=== PATIENT | male | born 1960 | race Caucasian/White ===

== ENCOUNTER 2024-04-03 12:38 | Outpatient (AMB) | payer OTHER, SELFPAY ==
--- NOTE | 2024-04-03 12:43 | MHC.OFFVIS ---
Vital Signs 04/03/24 12:46 Height 5 ft 10 in Weight 186 lb 15.232 oz BMI 26.8 BP 122/56 L Blood Pressure Location Lt brachial Position Sitting Pulse 56 Intake Visit Reasons: JANITORIAL TECH/Dr. Jung/Fred cardiac CT Intake Note: JANITORIAL TECH visit. Pt has no concerns Graduate Assistant Required: No Accompanied by: Self / Same As Patient Allergies Penicillins Allergy (Verified 04/03/24 12:47) Hives Medication List - Last Reconciled 04/03/24 by Terrell Patrick MD aspirin (Adult Low Dose Aspirin) 81 mg PO DAILY atorvastatin 40 mg PO DAILY propranolol 40 mg PO ONCE HPI Comments Details: Thank you for referring Amandeep in cardiology consultation today for management of elevated coronary calcium score. 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 He had a coronary calcium score done about 2 years ago which showed total coronary calcium score of 212 mostly predominantly located in the LAD territory. Since then he has been on high-intensity statin therapy with atorvastatin 40 mg daily and low-dose aspirin therapy. He had a lipid panel last January which showed LDL of 71 at that point time. He said he has cut down and modified his diet significantly. He said he exercises regularly and goes for long bike rides and with Lynda rides he does get short of breath but this is not unusual. Denies any exertional chest pain. He denies any prolonged palpitation irregular heartbeat. Tolerating his medications well. Comes for management of coronary atherosclerosis. [facility], LATER [facility] Surgical History History of arthroscopy of right shoulder Status post labral repair of shoulder Family History Father HTN (hypertension) DM2 (diabetes mellitus, type 2) Colon cancer Social History Alcohol intake: current Alcohol intake frequency: holidays/special occasions only Patient Tobacco Use Status: Never used Tobacco Review of Systems Const Denies chills, Denies fatigue, Denies fever(s), Denies weight gain and Denies weight loss ENT Denies dizziness Card Denies chest pain, Denies leg edema, Denies lightheadedness, Denies palpitations, Denies dyspnea on exertion, Denies orthopnea and Denies other Resp Denies cough and Denies dyspnea on exertion GI Denies hematochezia and Denies change in stool character Musc Denies abnormal gait, Denies muscle weakness, Denies numbness, Denies radiating pain into limb and Denies tingling Neuro Denies abnormal gait, Denies dizziness, Denies numbness and Denies tingling Endo Denies fatigue and Denies palpitations Physical Exam Vital Signs: Last Vital Signs Pulse 56 04/03/24 12:46 BP 122/56 L 04/03/24 12:46 BMI result Body Mass Index 26.8 Const General: cooperative, comfortable, no acute distress, well developed, alert, awake, Physically active and well groomed Nutritional Appearance: average body habitus and well nourished Orientation/consciousness: patient oriented x3 Limitations: no limitations HEENT Head: Yes normocephalic and Yes atraumatic Neck Neck: Yes trachea midline, Yes supple and Yes no JVD Resp Effort & Inspection: normal respiratory effort Auscultation: clear to auscultation bilaterally Cardio Jugular venous distension: no JVD Palpation: normal PMI Rate: regular rate Rhythm: regular rhythm Heart sounds: S1 normal heart sound present, S2 normal heart sound present, no click, no gallops, no murmurs and no rubs GI Auscultation: normal bowel sounds Skin General skin exam: no rashes or lesions noted Neuro General: patient oriented x3 and no focal motor deficits Extrem General: Yes no clubbing, cyanosis or edema Psych Appearance: grossly normal Office Procedures EKG Details: EKG shows normal sinus rhythm at 56 beats per minute minimal voltage criteria for LVH 64652-[id number], Complete Assessment & Plan Assessment & Plan (1) CAD (coronary artery disease): Code(s): I25.10 - Atherosclerotic heart disease of [place] coronary artery without angina pectoris Category: Medical Plan: Patient with presence of coronary atherosclerosis as noted by coronary calcium score predominantly in the LAD territory. He has strong family history for premature coronary artery disease and hyperlipidemia. He is currently on appropriate therapy with aspirin and high-intensity statin therapy which may need further optimization as needed. Patient has no obvious symptoms at high workload. However I would like to pursue exercise stress echocardiogram to rule out presence of silent myocardial ischemia. If not I would suggest him to continue with aggressive medical therapy. Pathophysiology of atherosclerosis was discussed in details. Current guidelines and research was discussed. I would suggest him to have repeat lipid panel as well as high sensitivity C-reactive protein and apolipoprotein B as well as lipoprotein a assay to see if he requires further optimization medical therapy. If LDL is still at 71 mg/dL would suggest to add either ezetimibe or increase atorvastatin to 80 mg per dL to target goal LDL less than 55 mg/dL as per new guidelines. He understands management well. He is agreeable to management plan. Will follow up in the clinic in 1 year's time, sooner p.r.n.. Thank you for allowing me to partake in his care Orders: Orders CA echo stress exercise Today I25.10 - Atherosclerotic heart disease of [place] coronary artery without angina pectoris Lipid Panel Today I25.10 - Atherosclerotic heart disease of [place] coronary artery without angina pectoris CRP High Sensitivity Today E78.5 - Hyperlipidemia, unspecified, I25.10 - Atherosclerotic heart disease of [place] coronary artery without angina pectoris Lipoprotein A Today I25.10 - Atherosclerotic heart disease of [place] coronary artery without angina pectoris Apolipoprotein B Today I25.10 - Atherosclerotic heart disease of [place] coronary artery without angina pectoris Coding Level of Care Code New Pt Level 4 (44344) Complex EM visit Add On G2211 Diagnoses CAD (coronary artery disease) I25.10 CPT Codes EKG - CPT: 98567-Margxohvpsmxwuyzc, Complete ([id number])
[2024-04-03 12:46] VITALS: BP 122/56; PULSE 56; BMI 26.8
== END 2024-04-03 13:49 | disposition home or self-care (01) ==
PROVIDERS: PCP Internal Medicine; Visit Provider Internal Medicine Cardiovascular Disease
DX: I25.10 Atherosclerotic heart disease of native coronary artery without angina pectoris (principal)
CPT/HCPCS: 93010; 99204

== ENCOUNTER → 2024-04-03 12:38 | Outpatient (BNVA) | payer OTHER, SELFPAY | PROVIDERS: PCP Internal Medicine; Visit Provider Internal Medicine Cardiovascular Disease | DX: I25.10 Atherosclerotic heart disease of native coronary artery without angina pectoris (principal); Z79.82 Long term (current) use of aspirin; Z79.899 Other long term (current) drug therapy | CPT/HCPCS: 93005 ==

== ENCOUNTER → 2024-05-14 10:32 | Outpatient (REF) | payer OTHER, SELFPAY ==
--- NOTE | 2024-05-14 10:37 | CA_ITS ---
Acquisition Time: 2024-05-14 11:07:40 Total Exercise Time: 00:09:01 Test Indications: CAD Medications: ASA ATORVASTATIN PROPRANOLOL Protocol: EDWARD Max HR: 155 BPM 98% of Pred: 157 BPM Max BP: 214/070 mmHG Max Work Load: 10.1 METS Exercise Stress Test with exercise 9 mins 1 sec of Edward Protocol, acheiving 89% MPHR, without any anginal symptoms, without any arrythmias, with baseline BP of 134/72 that apolinar to 214/70 with exercise. Without EKG changes meeting criteria for ischemia. Echo images were obtained by tech at rest and post peak exercise. Definity contrast utilized. In recovry, BP returned to baseline of 138/68. Test reviewed with Dr. Edwards. Referred By: Terrell Patrick Overread By: Alo Araujo
== END ==
LOC: HO.CARD 10:32
PROVIDERS: PCP Internal Medicine; Visit Provider Internal Medicine Cardiovascular Disease
DX: I25.10 Atherosclerotic heart disease of native coronary artery without angina pectoris (principal)
CPT/HCPCS: 93350; Q9957

== ENCOUNTER → 2024-05-14 10:37 | Outpatient (BNV) | payer OTHER, SELFPAY | PROVIDERS: PCP Internal Medicine | DX: I25.10 Atherosclerotic heart disease of native coronary artery without angina pectoris (principal); R03.0 Elevated blood-pressure reading, without diagnosis of hypertension | CPT/HCPCS: 93351; 93352 ==

== ENCOUNTER 2024-06-01 11:08 | Outpatient (REF) | payer OTHER, SELFPAY ==
[2024-06-01 11:10] LABS: MANUAL DIFF FLAG NO
[2024-06-01 11:34] LABS: Appearance Urine Clear; Color Urine Yellow; Glucose Urine UA Negative (Negative); Leukocyte Esterase Urine Trace (Negative); Nitrite Urine Negative (Negative); PH 7.5 (5.0-9.0); Specific Gravity - Urine 1.025 (1.005-1.025); UMIC TRIGGER UACC YES; Urine Blood Negative (Negative); Urine Ketones Negative (Negative); Urine Protein Negative (Neg-Trace)
[2024-06-01 11:50] LABS: Basophils Percent Auto 0.4 % (0-2); Eosinophils Absolute Auto 0.2 X10*3/uL (0.0-0.4); Eosinophils Percent Auto 2.7 % (0-4); Hematocrit 46.7 % (42.0-52.0); Hemoglobin 15.6 g/dl (14.0-18.0); Imm Gran Abs Auto 0.03 X10*3/uL (0.00-0.03); Imm Gran Pct Auto 0.4 % (0.0-0.4); Lymphocytes Percent Auto 29.4 % (20-40); Mean Corpuscular HGB Conc 33.4 g/dl (31.0-36.0); Mean Corpuscular Hemoglobin 28.5 pg (27.0-33.0); Mean Corpuscular Volume 85.4 fL (80.0-98.0); Mean Platelet Volume 10.9 fL (9.4-12.4); Monocytes Absolute Auto 0.8 X10*3/uL (0.1-1.2); Monocytes Percent Auto 12.1 % (2-11); Neutrophils Absolute Auto 3.7 x10*3/uL (2.0-8.3); Platelet Count 199 X10*3/uL (160-400); Red Blood Count 5.47 X10*6/uL (4.60-5.80); Red Cell Distribution Width 13.1 % (11.0-16.0); White Blood Count 6.8 X10*3/uL (4.8-10.8)
[2024-06-01 12:21] LABS: Bacteria Urine None Seen (None Seen); Hyaline Casts Urine 0-2 /LPF (0-2); RBC Urine 0-2 /HPF (0-2); Squamous Epithelial Cell Urine 0-2 /HPF (0-2); WBC Urine 0-5 /HPF (0-5)
[2024-06-01 12:42] LABS: Alanine Aminotransferase 52 U/L (0-40); Albumin Level 4.4 g/dL (3.5-5.0); Alkaline Phosphatase 93 U/L (39-117); Anion Gap 8 (12-20); Aspartate Amino Transferase 50 U/L (5-37); Bilirubin Total 0.8 mg/dL (0.0-1.0); Blood Urea Nitrogen 16 mg/dL (9-16); Calcium 9.3 mg/dL (8.4-10.2); Carbon Dioxide 32 mmol/L (22-29); Chloride 107 mmol/L (96-108); Cholesterol 131 mg/dL (<200); Estimated Glomerular Filt Rate 57; Glucose Fasting 95 mg/dL (60-99); HDL Cholesterol 45 mg/dL (>40); LDL Cholesterol Calculated 69 mg/dL (<100); Potassium 4.5 mmol/L (3.3-5.1); Sodium 142 mmol/L (135-145); Total Protein 7.2 g/dL (6.5-8.0); Triglycerides 86 mg/dL (<150)
== END 2024-06-01 11:09 | disposition home or self-care (01) ==
LOC: HO.LNP 11:08
PROVIDERS: Visit Provider Internal Medicine
DX: Z00.00 Encounter for general adult medical examination without abnormal findings (principal); Z12.5 Encounter for screening for malignant neoplasm of prostate
CPT/HCPCS: 80053; 80061; 81001; 84153; 85025

== ENCOUNTER 2024-06-18 14:29 | Outpatient (AMB) | payer OTHER, SELFPAY ==
[2024-06-18 14:30] VITALS: BP 138/68; PULSE 68; BMI 26.5
--- NOTE | 2024-06-18 14:30 | MHC.OFFVIS ---
Vital Signs 06/18/24 14:30 Height 5 ft 10 in Weight 185 lb BMI 26.5 BP 138/68 Blood Pressure Location Lt brachial Position Sitting Pulse 68 Pulse Source Pulse Oximeter Intake Visit Reasons: fu stress test Allergies Penicillins Allergy (Verified 04/03/24 12:47) Hives Medication List - Last Reconciled 06/18/24 by Terrell Patrick MD aspirin (Adult Low Dose Aspirin) 81 mg PO DAILY atorvastatin 40 mg PO DAILY propranolol 60 mg PO ONCE HPI Comments Details: Amandeep comes for follow-up. Underwent a stress echocardiogram recently which at high workload was within normal limits. He has no new cardiac symptoms at current point time. His most recent LDL is 69 mg/dL COUNTS INCLUDE 234 BEDS AT [facility] Surgical History History of arthroscopy of right shoulder Status post labral repair of shoulder Family History Father HTN (hypertension) DM2 (diabetes mellitus, type 2) Colon cancer Social History Alcohol intake: current Alcohol intake frequency: holidays/special occasions only Patient Tobacco Use Status: Never used Tobacco Review of Systems Const Denies weakness ENT Denies dizziness Card Denies chest pain, Denies chest pain with activity, Denies syncope, Denies rapid heart rate, Denies pedal edema, Denies edema, Denies leg edema, Denies lightheadedness, Denies palpitations, Denies dyspnea, Denies dyspnea on exertion and Denies orthopnea Resp Denies cough, Denies dyspnea and Denies dyspnea on exertion GI Denies hematochezia and Denies change in stool character Musc Denies abnormal gait, Denies muscle cramps, Denies muscle weakness, Denies numbness, Denies radiating pain into limb and Denies tingling Neuro Denies abnormal gait, Denies dizziness, Denies syncope, Denies numbness, Denies tingling and Denies weakness Endo Denies palpitations Physical Exam Vital Signs: Last Vital Signs Pulse 68 06/18/24 14:30 BP 138/68 06/18/24 14:30 BMI result Body Mass Index 26.5 Const General: cooperative, comfortable, no acute distress, well developed, alert, awake, Physically active and well groomed Nutritional Appearance: average body habitus and well nourished Orientation/consciousness: patient oriented x3 Limitations: no limitations HEENT Head: Yes normocephalic and Yes atraumatic Neck Neck: Yes trachea midline, Yes supple and Yes no JVD Resp Effort & Inspection: normal respiratory effort Auscultation: clear to auscultation bilaterally Cardio Jugular venous distension: no JVD Palpation: normal PMI Rate: regular rate Rhythm: regular rhythm Heart sounds: S1 normal heart sound present, S2 normal heart sound present, no click, no gallops, no murmurs and no rubs GI Auscultation: normal bowel sounds Skin General skin exam: no rashes or lesions noted Neuro General: patient oriented x3 and no focal motor deficits Extrem General: Yes no clubbing, cyanosis or edema Psych Appearance: grossly normal Assessment & Plan Assessment & Plan (1) CAD (coronary artery disease): Code(s): I25.10 - Atherosclerotic heart disease of [place] coronary artery without angina pectoris Category: Medical Plan: Coronary artery disease with elevated calcium score predominantly in the LAD territory with normal myocardial perfusion imaging suggestive of nonobstructive disease. This was discussed with him. He has good exercise capacity. He is encouraged to continue to participate in physical activity as tolerated gradually built his exercise activity level and avoid sudden strenuous exercise. Continue low-dose aspirin therapy. Continue aggressive blood pressure control which is currently well optimized. His LDL is not extremely well optimized as per guidelines. Will add ezetimibe 10 mg to his regimen to target goal LDL closer to 55 mg/dL. His concerns were all answered. Management of atherosclerosis was discussed in details. Follow up in the clinic in 1 year's time, sooner p.r.n.. Thank you for allowing me to partake in his care Orders: Orders Lipid Panel 2 Months I25.10 - Atherosclerotic heart disease of [place] coronary artery without angina pectoris Medications: New ezetimibe 10 mg PO DAILY 30 tabs 11RF Coding Level of Care Code Est Pt Level 3 (75495) Complex EM visit Add On G2211 Diagnoses CAD (coronary artery disease) I25.10
--- OUTSIDE RECORDS SUMMARY | 2024-06-18 18:54 | XMS_ITS | Clinical Summary ---
Author Organization [facility] Address [address] [place] [address] Care Team Providers Care Graduate Advisor Name Role Phone Unavailable Primary Care Provider Unavailabl e Allergies Active Allergy Reactions Criticality Noted Date Comments Penicillins Hives 06/24/2020 Immunizations Name Administration Dates Next Due Covid-19 (Moderna 12+) 100mcg/0.5mL dosage 06/24,05/27/2020 Social History Tobacco Use Types Packs/Day Years Used Date Smoking Tobacco: Never Assessed Sex and Gender Information Value Date Recorded Sex Assigned at Not on file Gender Identity Not on file Sexual Orientation Not on file Job Start Date Occupation Industry Not on file Not on file Not on file Plan of Treatment Health Maintenance Due Date Last Done Comments Hepatitis C Screening 1960 Depression Screening 1972 Preventative Health Evaluation 1978 DTap / Tdap / Td (1 - Tdap) 12/15/1979 Colon Cancer Screening (Colonoscopy) 2005 Shingrix-Zoster Vaccine (1 o f 2) 2010 COVID-19 Vaccine (3 - 2023-2 5 season) 2024 06/24/2020, 05/27/2020 Influenza Vaccine (#1) 2024 RSV Adult > 60+ Yrs or (1 - 1-dose 75+ series) 12/15/2035 Hepatitis B Vaccines Aged Out No long er eligible based on patient's age to complete this topic Pneumococcal Vaccine Aged Out No long er eligible based on patient's age to complete this topic RSV Ped < 20 months Aged Out No longe r eligible based on patient's age to complete this topic Insurance Payer Benefit Plan / Group Subscriber ID Effective Dates Phone Address [facility] [id number] 2013-Ashlee t [address] [facility] [address] [place] [address] O Tonja,Imna Personal/Family Self 1960 [address] [place] [address]
--- OUTSIDE RECORDS SUMMARY | 2024-06-18 18:55 | XMS_ITS | Patient Health Record ---
Author Organization Rey Jung MD Address [address] [place], [place] [id number] Care Team Providers Care Workforce Planner Name Role Phone Rey Jung Primary Care Provider Allergies Allergen (clinical drug ingredient) Drug/Non Drug Allergy documented on EMR Reaction Allergy Type Onset Date Status Penicillin hives Drug Allergy Active Results Component Value Reference Range Notes Complete Blood Count Auto Di ff Reviewed date:06/01/2024 05:21:59 PM Interpretation: Performing Lab:[facility], [address] [place] [id number] Notes/Report: White Blood Count 6.8 4.8-10.8 X10*3/uL [...] NRBC Abs Auto 0.000 0.0-0.012 X10*3/uL Comprehensive [place]. Panel Fa st Reviewed date:06/01/2024 05:15:45 PM Interpretation: Performing Lab:[address] [phone] Notes/Report: Sodium 142 135-145 mmol/L Potassium 4.5 [...] Panel Reviewed date:06/01/2024 05:15:52 PM Interpretation: Performing Lab:[address] [phone] Notes/Report: Triglycerides 86 <150 mg/dL Desirable Triglyceride: [...] (Free>4and<10) Reviewed date:06/01/2024 05:15:03 PM Interpretation: Performing Lab:[address] [phone] Notes/Report: PSA,Total (Free>4and<10) 1.10 0.00-4.00 ng/mL A [...] t Reviewed date:06/01/2024 05:15:18 PM Interpretation: Performing Lab:[facility], [address] [place] [phone] Notes/Report: Urine, Clean Catch Color Urine Yellow Appearance Urine Clear PH 7.5 5.0-9.0 Glucose Urine UA Negative Negative mg/dL Urine Blood Negative Negative Specific [place] - Urine 1.025 1.005-1.025 Urine Protein Negative Neg-Trace mg/dL Urine Ketones Negative Negative mg/dL Nitrite Urine Negative Negative Leukocyte Esterase Urine Trace Negative RBC Urine 0-2 0-2 /HPF WBC Urine 0-5 0-5 /HPF Squamous Epithelial Cell Urine 0-2 0-2 /HPF Bacteria Urine None Seen None Seen Hyaline Casts Urine 0-2 0-2 /LPF Reason For Referral Reason abnormal screening c [place] CT Diagnosis [address] (R93.1) Referral Organization Rey Jung MD Referring Provider First Name Rey Referring Provider Last Name Fabiana Referring Provider Speciality Internal M edicine Referred Provider Terrell Patrick Referred Provider Specialty Cardiovascul ar Disease General Notes Vernell Hurtado 02:53:42 PM EDT > info faxed , Vernell Hurtado 01/06/2024 01:08:35 PM EDT > info mailed to patient, Joyce Collazo 06/08/2024 10:00:27 AM >THE OFFICE NOTE WAS RECD Referral Priority Routine Referral Appointment Date 04/03/2024 Medications Medication SIG (Take, Route, Frequency, Duration) Notes Start Date End Date Status Aspir-Low 81 MG 1 tablet Orally Once a day for 30 day(s) Active Propranolol HCl ER 60 MG 1 capsule Orall y Once a day for 90 days 12/05/2023 Active Atorvastatin Calcium 40 MG 1 tablet Oral ly Once a day for 90 days Active Social History Tobacco Use: Social History Observation Description Date Details (start date - stop date) Never Smoker NA - NA Tobacco Use/Smoking Question Answer Notes Patient is a nonsmoker Additional Findings: Tobacco Non-User Cu rrent non-smoker, currently using no form of tobacco Alcohol Screen Question Answer Notes Did you have a drink containing alcohol in the p ast year? No Points 0 Interpretation Negative Problems Problem Type SNOMED Code ICD Code Onset Dates Problem Status W/U Status Risk Notes Problem 92223392 Other chronic pain (G89.29) Active confirmed Problem 06446066 CAD in [place] artery (I25.10) Active confirmed Vital Signs Blood pressure diastolic 60 mm Hg 06/08/2024 Height 70 in 06/08/2024 Blood pressure systolic 132 mm Hg 06/08/2024 Weight 190 lbs 06/08/2024 BMI 27.26 kg/m2 06/08/2024 Encounters Encounter Location Date Provider Diagnosis Rey Jung MD [address] [place] [address] [address] [place], [place] [id number] 06/08/2024 Rey Jung Elevated LFTs R79.89 ; Encounter for general adult medical examination without abnormal findings Z00.00 and CAD in prairie band artery I25.10 Rey Jung MD [address] [place] [address] Drive [address] [place], [place] [id number] 06/01/2024 Rey Jung Blood tests for routine general physical examination Z00.00 Rey Jung MD [address] [place] [address] Drive [address] [place], [place] [id number] 12/05/2023 Rey Jung Abnormal screening cardiac CT R93.1 ; Pain in right shoulder M25.511 ; Other chronic pain G89.29 and History of migraine Z86.69 Assessments Encounter Date Diagnosis (ICD Code) Assessment Notes Treatment Notes Treatment Clinical Notes Section Notes 06/08/2024 Elevated LFTs (ICD-10 - R79.89) 06/08/2024 Encounter for general adult medical examination without abnormal findings (ICD-10 - Z00.00) Labs reviewed and discussed with patient 06/01/2024 Blood tests for routine general physical examination (ICD-10 - Z00.00) 12/05/[address] (ICD-10 - R93.1) referral to dr [email or web address] continue current regiment 12/05/2023 Pain in right shoulder (ICD-10 - M25.511) considering shoulder replacement 06/08/2024 CAD in pra[place] band artery (ICD-10 - I25.10) get copy of stress test and coronary ctfrom dr patrick 12/05/2023 Other chronic pain (ICD-10 - G89.29) 12/05/2023 History of migraine (ICD-10 - Z86.69) will continue current regiment 12/05/2023 Other Total time spen t on the date of the encounter is 45 minutes including both face to face time spent and time spent reviewing documentation, pertinent lab data, studies and counseling the patient. Plan Of Treatment Next Appt Details Provider Name:Rey sena, 11/29/2024 07:45:00 AM, [address] [place] [address], [address], [phone], Provider Name:Rey sena, 12/06/2024 10:15:00 AM, [address] [place] [address], [address], [phone], Provider Name:Rey zacariasr, 06/06/2025 07:45:00 AM, [address], [address], [place], [id number], Provider Name:Rey Albarado rellr, 06/13/2025 11:00:00 AM, [address], [address], [place], [id number], Insurance Providers Payer Name Payer Address Payer Phone Subscriber Number Group Number Insured Name Patient Relationship to Insured Coverage Start Date Coverage End Date [facility] [address] [facility] [address] [place] [phone] [id number] Mina Evangelista Self - patient is the insured 5 Medical (General) History Medical History History ICD Code colonoscopy 2 or 3 years ago 2025 due
--- OUTSIDE RECORDS SUMMARY | 2024-06-18 18:55 | XMS_ITS | Encounter Summary ---
Author Organization [facility] Address [address] [place] [address] Care Team Providers Care [employer] Machine Operator Name Role Phone Dinh Gray MD Primary Care Provider [phone] Reason for Referral * Physical Therapy (Routine) - Closed Specialty Diagnoses / Procedures Referred By Contmadan t Referred To Contact Physical Therapy Diagnoses Arthritis of right glenohumeral joint Abram Ramos MD [address] [place] [phone] Phone: tel: fax: Referral ID Status Reason Start Date Expiration Date Visits Re quested Visits Authorized [id number] Closed 11/07/2020 05/06/2021 1 1 Encounter Details Date Type Department Care Team (Late st Contact Info) Description 11/07/2020 Orders Only [address] [id number] Abram Ramos MD [address] [place] [phone] Arthritis of right glenohumeral joint (Primary Dx) Social History Tobacco Use Types Packs/Day Years Used Date Smoking Tobacco: Never Smokeless Tobacco: Never Alcohol Use Standard Drinks/Week Comments Yes 0 (1 standard drink = 0.6 oz pur e alcohol) Sex and Gender Information Value Date Recorded Sex Assigned at Not on file Legal Sex Male 11:22 AM EST Gender Identity Not on file Sexual Orientation Not on file documented as of this encounter Plan of Treatment Scheduled Referrals Name Type Priority Associated Diagnoses Orde r Schedule Rehab Services Referral Outpatient Referral Routine Arthritis of right glenohumeral joint Ordered: 11/07/2020 documented as of this encounter Visit Diagnoses Diagnosis Arthritis of right glenohumeral joint- Primary documented in this encounter Care Teams [employer] Machine Operator Relationship Specialty Start Date End Date Dinh Gray MD [address] [facility] [address] [place] [address] PCP - General Internal Medicine 05/27/20 documented as of this encounter
--- OUTSIDE RECORDS SUMMARY | 2024-06-18 18:55 | XMS_ITS | Clinical Summary ---
Author Organization [facility] Address [address] [place] [address] Care Team Providers Care Corporate Communications Specialist Name Role Phone Dinh Gray MD Primary Care Provider [phone] Allergies Active Allergy Reactions Criticality Noted Date Comments Penicillin V Potassium Rash Low 02/14/2013 Medications lovastatin (MEVACOR) 10 mg tablet Take by mouth daily. Active propranoloL (INDERAL) 60 mg tablet Take by mouth. 05/28/2013 Active Active Problems No known active problems Social History Tobacco Use Types Packs/Day Years Used Date Smoking Tobacco: Never Smokeless Tobacco: Never Alcohol Use Standard Drinks/Week Comments Yes 0 (1 standard drink = 0.6 oz pur e alcohol) Sex and Gender Information Value Date Recorded Sex Assigned at Not on file Legal Sex Male 11:22 AM EST Gender Identity Not on file Sexual Orientation Not on file Last Filed Vital Signs Vital Sign Reading Time Taken Comments Blood Pressure - - Pulse - - Temperature - - Respiratory Rate - - Oxygen Saturation - - Inhaled Oxygen Concentration - - Weight 81.6 kg (180 lb) 05/28/2020 8:19 AM EST Height 177.8 cm (5' 10 ) 05/28/2020 8:19 AM EST Body Mass Index 25.83 05/28/2020 8:19 AM EST Plan of Treatment Health Maintenance Due Date Last Done Comments CT Colonography 1960 Colonoscopy 1960 Colorectal Cancer Screening 1960 FIT-DNA (Cologuard) 1960 FIT 1960 FOBT 1960 Flex Sigmoidoscopy - 5y 1960 HIV Screening 1960 DTaP,Tdap,and Td Vaccines (1 - Tdap) 1978 Zoster Vaccines (1 of 2) 2010 COVID-19 Vaccine (1 - 2023-2 5 season) 2024 Influenza Vaccine (#1) 2024 HPV Vaccines Aged Out No longer eligi ble based on patient's age to complete this topic Hepatitis A Vaccines Aged Out No long er eligible based on patient's age to complete this topic MMR Vaccines Aged Out No longer eligi ble based on patient's age to complete this topic Meningococcal Vaccine Aged Out No braydon munira eligible based on patient's age to complete this topic Pneumococcal Vaccine: Pediat rics (0 to 5 Years) and At-Risk Patients (6 to 64 Years) Aged Out No longer eligible b ased on patient's age to complete this topic Insurance Care Teams Corporate Communications Specialist Relationship Specialty Start Date End Date Dinh Gray MD [address] [place] [address] PCP - General Internal Medicine 05/27/20
--- OUTSIDE RECORDS SUMMARY | 2024-06-18 18:55 | XMS_ITS ---
Author Organization Rey Jung MD Address [address] [place], [place] [id number] Care Team Providers Care Pca Name Role Phone Rey Jung Primary Care Provider Allergies Allergen (clinical drug ingredient) Drug/Non Drug Allergy documented on EMR Reaction Allergy Type Onset Date Status Penicillin hives Drug Allergy Active REASON FOR VISIT annual visit Medications Medication SIG (Take, Route, Frequency, Duration) [...] Problem Status W/U Status Risk Notes Problem [id number] CAD in [place] artery (I25.10) Active confirmed Vital Signs Blood pressure systolic 132 mm Hg 06/08/19 25 Blood pressure diastolic 60 mm Hg 025 Height 70 in 06/08/2024 Weight 190 lbs 06/08/2024 BMI 27.26 kg/m2 06/08/2024 Encounters Encounter Location Date Provider Diagnosis Rey Jung MD [address] [place], [place] [id number] 06/08/2024 Rey Jung Elevated LFTs R79.89 ; Encounter for general adult medical examination without abnormal findings Z00.00 and CAD in [place] artery I25.10 Assessments Encounter Date Diagnosis (ICD Code) Assessment Notes Treatment Notes Treatment Clinical Notes Section Notes 06/08/2024 Elevated LFTs (ICD-10 - R79.89) 06/08/2024 Encounter for general adult medical examination without abnormal findings (ICD-10 - Z00.00) Labs reviewed and discussed with patient 06/08/2024 CAD in [place] artery (ICD-10 - I25.10) get copy of stress test and coronary ctfrom dr huber Plan Of Treatment Treatment Notes Assessment Notes Encounter for general adult medical examination without abnormal findings Labs reviewed and discussed with patient CAD in [place]aim[place] artery get copy of stress test and coronary ctfrom dr huber Future Test Test Name Order Date Liver Panel 12/06/2024 Lipid Panel 12/06/2024 Next Appt Details Follow Up: 6 Months, Reason: Provider Name:Rey sena, 11/29/2024 07:45:00 AM, [address] [place] [address], [address], [phone], Provider Name:Rey sena, 12/06/2024 10:15:00 AM, [address] [place] [address], [address] [place] [address], [phone], Provider Name:Rey sena, 06/06/2025 07:45:00 AM, [address] [place] [address], [address], [phone], Provider Name:Rey sena, 06/13/2025 11:00:00 AM, [address] [place] [address], [address], [phone], Progress Notes * Renee EVANGELISTAOB: (63 yo M)Acc No.[id number]:06/08/2024 Progress Notes Patient:?Mina EVANGELISTA Provider:?Rey Jung MD :1960???Age:63 Y???Sex:Male Austen e:06/08/2024 [facility] [place] [id number] Subjective: * Chief Complaints: * ???1. Annual visit. * HPI: ???Depression Screening:?PHQ-9?Little interest or pleasure in doing things?Not at all,?Feeling down, depressed, or hopeless?Not at all,?Trouble falling or staying asleep, or sleeping too much?Not at all,?Feeling tired or having little energy?Not at all,?Poor appetite or overeating?Not at all,?Feeling bad about yourself or that you are a failure, or have let yourself or your family down?Not at all,?Trouble concentrating on things, such as reading the newspaper or watching television?Not at all,?Moving or speaking so slowly that other people could have noticed; or the opposite, being so fidgety or restless that you have been moving around a lot more than usual?Not at all,?Thoughts that you would be better off or of hurting yourself in some way?Not at all,?Total Score?0.? here for yearly evaluation. ???Communication Needs:?Communication Needs?Does the patient have a hearing impairment?No,?Does the patient have a vision impairment??Yes,?If yes, what is the vision impairment??Glasses,?Does the patient have a cognition impairment??No.?SDOH Questions:?SDOH Questions?In the past year have you been worried about losing housing??No,?In the past year have you or any family members you live with been unable to get any of the following when it was really needed? Check all that apply:?None.? * ROS:?General/Constitutional:?Change in appetite?denies.?Chills?denies.?Fever?denies.?Ophthalmologic:?Blurred vision?denies.?Discharge?denies.?Pain?denies.?ENT:?Decreased hearing?denies.?Sore throat?denies.?Swollen glands?denies.?Endocrine:?Cold intolerance?denies.?Excessive thirst?denies.?Heat intolerance?denies.?Weight loss?denies.?Respiratory:?Cough?denies.?Shortness of breath at rest?denies.?Shortness of breath with exertion?denies.?Wheezing?denies.?Cardiovascular:?Chest pain at rest?denies.?Chest pain with exertion?denies.?Irregular heartbeat?denies.?Shortness of breath?denies.?Gastrointestinal:?Abdominal pain?denies.?Change in bowel habits?denies.?Diarrhea?denies.?Nausea?denies.?Rectal bleeding?denies.?Vomiting?denies .?Genitourinary:?Blood in urine?denies.?Difficulty urinating?denies.?Frequent urination?denies.?Musculoskeletal:?Painful joints?denies.?Weakness?denies.?Skin:?Dry skin?denies.?Itching?denies.?Denies?Mole(s),? changes in moles, new moles or any lesions of concern.?Denies?Photosensitivity.?Rash?denies.?Neurologic:?Dizziness?denies.?Fainting?denies.?Headache?denies.? * Medical History:?Colonoscopy 2 or 3 years ago 2025 due. * Family History:?Father: dece ased 90 yrs.?Mother: alive 90 yrs.?1 brother(s) . 2 son(s) , 1 daughter(s) . .? Mother Dementia Father CHF, No pertinent family medical history. * Social History:?Tobacco Use:?Tobacco Use/Smoking?Patient is a?nonsmoker,?Additional Findings: Tobacco Non-User?Current non-smoker, currently using no form of tobacco.?Drugs/Alcohol:?Alcohol Screen?Did you have a drink containing alcohol in the past year??No,?Points?0,?Interpretation?Negative.?Miscellaneous:?Caffeine: yes, frequency:, 1-2 cups per day. Children: yes. Exercise: yes, Bike QD 2-3- hours. Housing: owning. Marital status: single, . Pets: cats: dogs:1 dog. Travel outside of the [place]: yes, [facility]. * Medications:?Taking Aspir-Lo w 81 MG Tablet Delayed Release 1 tablet Orally Once a day , Taking Propranolol HCl ER 60 MG Capsule Extended Release 24 Hour 1 capsule Orally Once a day , Taking Atorvastatin Calcium 40 MG Tablet 1 tablet Orally Once a day , Discontinued Propranolol HCl 60 MG Tablet 1 tablet Orally once a day , Medication List reviewed and reconciled with the patient * Allergies:?Penicillin: hives . Objective: * Vitals:?Ht: 70, Wt: 190, BMI :27.26, BP:132/60, Wt-k.18. * ???Past Orders: ???Lab:UA ClnCatch+Micro w/r flx Cult (Order Date - 06/01/2024) (Collection Date & Time - 06/01/2024 07:30 AM) ? Value Reference Range ?Color Urine Yellow - ?Appearance Urine Clear - ?PH 7.5 5.0-9.0 - ?Glucose Urine UA Negative Neg ative - mg/dL ?Urine Blood Negative Negative - ?Specific [place] - Urine 1.025 1.005-1.025 - ?Urine Protein Negative Neg-Tr harris - mg/dL ?Urine Ketones Negative Negati ve - mg/dL ?Nitrite Urine Negative Negati ve - ?Leukocyte Esterase Urine Trace A Negative - ?RBC Urine 0-2 0-2 - /HPF ?WBC Urine 0-5 0-5 - /HPF ?Squamous Epithelial Cell Urine 0-2 0-2 - /HPF ?Bacteria Urine None Seen None Seen - ?Hyaline Casts Urine 0-2 0-2 - /LPF ???Lab:Complete Blood Count Auto Diff (Order Date - 06/01/2024) (Collection Date & Time - 06/01/2024 07:30 AM) ? Value Reference Range ?White Blood Count 6.8 4. 8-10.8 - X10*3/uL ?Red Blood Count 5.47 4.60 -5.80 - X10*6/uL ?Hemoglobin 15.6 14.0-18.0 - g/dl ?Hematocrit 46.7 42.0-52.0 - % ?Mean Corpuscular Volume 85.4 80.0-98.0 - fL ?Mean Corpuscular Hemoglobin 28.5 27.0-33.0 - pg ?Mean Corpuscular HGB Conc 33.4 31.0-36.0 - g/dl ?Red Cell Distribution Width 13.1 11.0-16.0 - % ?Platelet Count 199 160-4 00 - X10*3/uL ?Mean Platelet Volume 10.9 9.4-12.4 - fL ?Neutrophils Percent Auto 55.0 45-73 - % ?Imm Gran Pct Auto 0.4 0. 0-0.4 - % ?Lymphocytes Percent Auto 29.4 20-40 - % ?Monocytes Percent Auto 12.1 H 2-11 - % ?Eosinophils Percent Auto 2.7 0-4 - % ?Basophils Percent Auto 0.4 0-2 - % ?NRBC Pct Auto 0.0 0.0-0. 2 - /100WBC ?Neutrophils Absolute Auto 3.7 2.0-8.3 - x10*3/uL ?Imm Gran Abs Auto 0.03 0. 00-0.03 - X10*3/uL ?Lymphocytes Absolute Auto 2.0 1.2-4.9 - X10*3/uL ?Monocytes Absolute Auto 0.8 0.1-1.2 - X10*3/uL ?Eosinophils Absolute Auto 0.2 0.0-0.4 - X10*3/uL ?Basophils Absolute Auto 0.0 0.0-0.2 - X10*3/uL ?NRBC Abs Auto 0.000 0.0-0. 012 - X10*3/uL ???Lab:Comprehensive [place]. P kiersten Fast (Order Date - 06/01/2024) (Collection Date & Time - 06/01/2024 07:30 AM) ? Value Reference Range ?Sodium 142 135-145 - mmo l/L ?Bilirubin Total 0.8 0.0- 1.0 - mg/dL ?Aspartate Amino Transferase 50 H 5-37 - U/L ?Alanine Aminotransferase 52 H 0-40 - U/L ?Total Protein 7.2 6.5-8. 0 - g/dL ?Albumin Level 4.4 3.5-5. 0 - g/dL ?Alkaline Phosphatase 93 39-117 - U/L ?Potassium 4.5 3.3-5.1 - mmol/L ?Chloride 107 96-108 - mm ol/L ?Carbon Dioxide 32 H 22-29 - mmol/L ?Anion Gap 8 L 12-20 - ?Blood Urea Nitrogen 16 9-16 - mg/dL ?Creatinine 1.27 0.5-1.4 - mg/dL ?Estimated Glomerular Filt Rate 57 - ?Glucose Fasting 95 60-9 9 - mg/dL ?Calcium 9.3 8.4-10.2 - m g/dL ???Lab:Lipid Panel (Order Da te - 06/01/2024) (Collection Date & Time - 06/01/2024 07:30 AM) ? Value Reference Range ?Triglycerides 86 <150 - mg/dL ?Cholesterol 131 <200 - m g/dL ?LDL Cholesterol Calculated 69 <100 - mg/dL ?HDL Cholesterol 45 >40 - mg/dL * Examination: ???General Examination: ?GENERAL APPEARANCE:?well developed, well nourished, in no acute distress.?HEAD:?normocephalic, atraumatic.?EYES:?pupils equal, round, reactive to light and accommodation, sclera non-icteric.?EARS:?normal.?ORAL CAVITY:?mucosa moist.?THROAT:?clear.?NECK/THYROID:?neck supple, full range of motion, no cervical lymphadenopathy, no bruits.?SKIN:?warm and dry, no suspicious lesions.?HEART:?regular rate and rhythm, S1, S2 normal, no murmurs.?LUNGS:?clear to auscultation bilaterally.?ABDOMEN:?soft, nontender, nondistended, bowel sounds present, normal, no organomegaly , no masses palpable.?RECTAL EXAM:?normal tone, no external hemorrhoids, no masses palpable, prostate normal, stool guaiac negative.?MALE GENITOURINARY:?circumcised , no penile lesions or discharge , testes descended bilaterally.?EXTREMITIES:?no clubbing, cyanosis, or edema.?NEUROLOGIC:?nonfocal, motor strength normal upper and lower extremities, sensory exam intact.? Assessment: * Assessment: 1.?Encounter for general steffanie lt medical examination without abnormal findings - Z00.00 (Primary)???2.?Elevated LFTs - R79.89???3.?CAD in napaim[place] artery - I25.10??? Plan: * Treatment: 2.?Elevated LFTs?LAB: Liver Panel (Ordered for 12/06/2024) ?LAB: Lipid Panel (Ordered for 12/06/2024) 3.?CAD in [place] artery? Notes: get copy of stress test and coronary ctfrom dr huber?? * Follow Up:?6 Months * * The named appointment provid er may or may not be the originator of this progress note, and it is not deemed complete until electronically signed by the appointment provider. Sign off status: Pending * Provider:?Rey Jung MD Date:?0 06/08/2024 Generated for Bhavna nazario/Elsa/eTransmitting on:?06/18/2024 06:55 PM EST History and Physical Notes * HPI (History of Present Illness) Category Sub-Category Detail Notes Category Not es Depression Screening PHQ-9 Little inte rest or pleasure in doing things: Not at all here for yearly evaluation Feeling down, depressed, or hopeless: No t at all Trouble falling or staying asleep, or sl eeping too much: Not at all Feeling tired or having little energy: N ot at all Poor appetite or overeating: Not at all Feeling bad about yourself o r that you are a failure, or have let yourself or your family down: Not at all Trouble concentrating on thi ngs, such as reading the newspaper or watching television: Not at all Moving or speaking so slowly that other people could have noticed; or the opposite, being so fidgety or restless that you have been moving around a lot more than usual: Not at all Thoughts that you would be b vladimir off or of hurting yourself in some way: Not at all Total Score: 0 SDOH Questions SDOH Questions In the past year have you been worried about losing housing?: No In the past year have you or any family members you live with been unable to get any of the following when it was really needed? Check all that apply:: None Communication Needs Communication Needs Does the patient have a hearing impairment: No Does the patient have a vision impairmen t?: Yes ?If yes, what is the vision impairment?: Glasses Does the patient have a cognition impair ment?: No Examination Category Sub-Category Detail Notes Category Not es General Examination GENERAL APPEARANCE: well dev eloped, well nourished, in no acute distress HEAD: normocephalic, atrau matic EYES: pupils equal, round, reactive to light and accommodation, sclera non- icteric EARS: normal THROAT: clear NECK/THYROID: neck supple, full ra nge of motion, no cervical lymphadenopathy, no bruits HEART: regular rate and rhy thm, S1, S2 normal, no murmurs LUNGS: clear to auscultatio n bilaterally ABDOMEN: soft, nontender, non distended, bowel sounds present, normal, no organomegaly , no masses palpable NEUROLOGIC: nonfocal, motor stre ngth normal upper and lower extremities, sensory exam intact SKIN: warm and dry, no debora picious lesions EXTREMITIES: no clubbing, cyanosi s, or edema MALE GENITOURINARY: circumcised , no pen ile lesions or discharge , testes descended bilaterally RECTAL EXAM: normal tone, no exte rnal hemorrhoids, no masses palpable, prostate normal, stool guaiac negative ORAL CAVITY: mucosa moist
--- OUTSIDE RECORDS SUMMARY | 2024-06-18 18:55 | XMS_ITS ---
Author Organization Rey Jung MD Address [address] [place], [place] [id number] Care Team Providers Care Appliance Painter And Refinisher Name Role Phone Rey Jung Primary Care Provider [phone] Results Component Value Reference Range Notes Complete Blood Count Auto Di ff Reviewed date:06/01/2024 05:21:59 PM Interpretation: Performing Lab:[facility], [address] [place] [phone] Notes/Report: White Blood Count 6.8 4.8-10.8 X10*3/uL [...] NRBC Abs Auto 0.000 0.0-0.012 X10*3/uL Comprehensive [place]. Panel Fa st Reviewed date:06/01/2024 05:15:45 PM Interpretation: Performing Lab:[address] [phone] Notes/Report: Sodium 142 135-145 mmol/L Potassium 4.5 [...] Panel Reviewed date:06/01/2024 05:15:52 PM Interpretation: Performing Lab:[address] [phone] Notes/Report: Triglycerides 86 <150 mg/dL Desirable Triglyceride: [...] (Free>4and<10) Reviewed date:06/01/2024 05:15:03 PM Interpretation: Performing Lab:[address] [phone] Notes/Report: PSA,Total (Free>4and<10) 1.10 0.00-4.00 ng/mL A [...] t Reviewed date:06/01/2024 05:15:18 PM Interpretation: Performing Lab:[facility], [address] [place] [phone] Notes/Report: Urine, Clean Catch Color Urine Yellow Appearance Urine Clear PH 7.5 5.0-9.0 Glucose Urine UA Negative Negative mg/dL Urine Blood Negative Negative Specific [place] - Urine 1.025 1.005-1.025 Urine Protein Negative [...] Rey Jung MD [address] [place] [phone] 06/01/2024 Rey Jung Blood tests for routine general physical examination Z00.00 Assessments Encounter Date Diagnosis (ICD Code) Assessment Notes Treatment Notes Treatment Clinical Notes Section Notes 06/01/2024 Blood tests for routine general physical examination (ICD-10 - Z00.00) Plan Of Treatment Next Appt Details Provider Name:Rey sena, 11/29/2024 07:45:00 AM, Hospital [facility], [address] [facility], [place], [place], [phone], Provider Name:Rey sena, 12/06/2024 10:15:00 AM, [address] [place] [address], [address] [facility], [place], [place], [phone], Provider Name:Rey sena, 06/06/2025 07:45:00 AM, [address] [place] [address], [address] [facility], [place], [place], [phone], Provider Name:Rey sena, 06/13/2025 11:00:00 AM, [address] [place] [address], [address] [facility], [place], [place], [phone], Progress Notes * [place] EVANGELISTAEronOB: (63 yo M)Acc No.[id number]:06/01/2024 Progress Note Patient:?Mina EVANGELISTA Provider:?Rey Jung MD :1960???Age:63 Y???Sex:Male Austen e:06/01/2024 Address:[address] [place] [address], [id number] Subjective: * Chief Complaints: * ???1. Yearly fasting labs. * Medical History:? Objective: * Vitals:? Assessment: * Assessment: 1.?Blood tests for routine g eneral physical examination - Z00.00 (Primary)??? Plan: * Treatment: * Procedure Codes:?06066 VENIP UNCT, ROUTINE* * * The named appointment provid er may or may not be the originator of this progress note, and it is not deemed complete until electronically signed by the appointment provider. Sign off status: Pending * Provider:?Rey Jung MD Date:?0 06/01/2024 Generated for Bhavna nazario/Elsa/Favio on:?06/18/2024 06:55 PM EST
--- OUTSIDE RECORDS SUMMARY | 2024-06-18 18:55 | XMS_ITS | Clinical Summary ---
Author Organization [facility] Address [address] [place] [address] Care Team Providers Care Sql Analyst Name Role Phone Unavailable Primary Care Provider Unavailabl e Social History Tobacco Use Types Packs/Day Years Used Date Smoking Tobacco: Never Assessed Sex and Gender Information Value Date Recorded Sex Assigned at Not on file Gender Identity Not on file Sexual Orientation Not on file Plan of Treatment Health Maintenance Due Date Last Done Comments DTaP,Tdap,and Td Vaccines (1 - Tdap) 12/15/1979 Zoster Vaccines (1 of 2) 2010 Cholesterol Screening (Lipid Panel) 04/24/2022 Colorectal Cancer Screening: Colonoscopy 04/24/2022 Depression Screening 04/24/2022 HIV Screening 04/24/2022 Hepatitis C Screening 04/24/2022 Social Influencers of Health Screening 04/24/2022 COVID-19 Vaccine (3 - 2023-2 5 season) 2024 06/24/2020, 05/27/2020 Influenza Vaccine (#1) 2024 RSV Immunization Patients 60 + Years Old (1 - 1-dose 75+ series) 12/15/2035 HIB Vaccines Aged Out No longer eligi ble based on patient's age to complete this topic HPV Vaccines Aged Out No longer eligi ble based on patient's age to complete this topic Hepatitis A Vaccines Aged Out No long er eligible based on patient's age to complete this topic Hepatitis B Vaccines Aged Out No long er eligible based on patient's age to complete this topic IPV Vaccines Aged Out No longer eligi ble based on patient's age to complete this topic MMR Vaccines Aged Out No longer eligi ble based on patient's age to complete this topic Meningococcal ACWY Vaccine Aged Out N o longer eligible based on patient's age to complete this topic Pneumococcal Vaccine: Pediatrics (0 to 5 Years) and At-Risk Patients (6 to 64 Years) Aged Out No longer eligible b ased on patient's age to complete this topic RSV Immunization Patients Under 20 months Aged Out No longer eligible b ased on patient's age to complete this topic Varicella Vaccines Aged Out No longer eligible based on patient's age to complete this topic
--- OUTSIDE RECORDS SUMMARY | 2024-06-18 18:55 | XMS_ITS ---
Author Organization Rey Jung MD Address [address] [place], [place] [id number] Care Team Providers Care Actuarial Mathematician Name Role Phone Rey Jung Primary Care Provider [phone] Allergies Allergen (clinical drug ingredient) Drug/Non Drug Allergy documented on EMR Reaction Allergy Type Onset Date Status Penicillin hives Drug Allergy Active Reason For Referral Reason abnormal screening c [...] Referral Priority Routine Referral Appointment Date 04/03/2024 REASON FOR VISIT new patient est care needs refills Medications Medication SIG (Take, Route, Frequency, Duration) Notes Start Date End Date Status Aspir-Low 81 MG 1 tablet Orally Once a day for 30 day(s) Active Propranolol HCl ER 60 MG 1 capsule Orall y Once a day for 90 days 12/05/2023 Active Atorvastatin Calcium 40 MG 1 tablet Oral ly Once a day for 90 days Active Propranolol HCl 60 MG 1 tablet Orally on ce a day Active Social History Tobacco Use: Social History [...] Problem Status W/U Status Risk Notes Problem [id number] Other chronic pain (G89.29) Active confirmed Vital Signs Blood pressure systolic 114 mm Hg 12/05/19 24 Blood pressure diastolic 60 mm Hg 024 Height 70 in 12/05/2023 Weight 187 lbs 12/05/2023 BMI 26.83 kg/m2 12/05/2023 Encounters Encounter Location Date Provider Diagnosis Rey Jung MD [address] [place] [address] [place] [id number] 12/05/2023 Rey Jung Abnormal screening cardiac CT R93.1 ; Pain in right shoulder M25.511 ; Other chronic pain G89.29 and History of migraine Z86.69 Assessments Encounter Date Diagnosis (ICD Code) Assessment Notes Treatment Notes Treatment Clinical Notes Section Notes 12/05/[address] (ICD-10 - R93.1) referral to dr patrick.will continue current regiment 12/05/2023 Pain in right shoulder (ICD-10 - M25.511) considering shoulder replacement 12/05/2023 Other chronic pain (ICD-10 - G89.29) 12/05/2023 History of migraine (ICD-10 - Z86.69) will continue current regiment 12/05/2023 Other Total time spen t on the date of the encounter is 45 minutes including both face to face time spent and time spent reviewing documentation, pertinent lab data, studies and counseling the patient. Plan Of Treatment Medication Medication Name Sig Start Date Stop Date Notes Propranolol HCl ER 60 MG 1 capsule Orall y Once a day for 90 days 12/05/2023 Atorvastatin Calcium 40 MG 1 tablet Oral ly Once a day for 90 days Treatment Notes Assessment Notes Abnormal screening cardiac CT referral t o dr patrick.will continue current regiment Pain in right shoulder considering shoul maranda replacement History of migraine will continue curren t regiment Other Total time spent on the date of the encounter is 45 minutes including both face to face time spent and time spent reviewing documentation, pertinent lab data, studies and counseling the patient. Referrals Referral Date Details 12/05/2023 12/05/2023, abnormal screening cardiac CT , Terrell Patrick Next Appt Details Follow Up: 6 Months, Reason: complete Provider Name:Rey sena, 11/29/2024 07:45:00 AM, [facility], [address], [place], [place], [phone], Provider Name:Rey sena, 12/06/2024 10:15:00 AM, [address], [address], [place], [place], [phone], Provider Name:Rey zacariasr, 06/06/2025 07:45:00 AM, [address] [place] [address], [address], [place], [place], [phone], Provider Name:Rey sena, 06/13/2025 11:00:00 AM, [address] [place] [address], Suite [facility], [place], [place], [phone], Progress Notes * Renee EVANGELISTAOB: (62 yo M)Acc No.[id number]:12/05/2023 Progress Notes Patient:?Mina Evangelista Provider:?Rey Jung MD :1960???Age:62 Y???Sex:Male Austen e:12/05/2023 Address:[address] [place] [address], [id number] Subjective: * Chief Complaints: * ???New patient est care need s refills * HPI: ???Symptom(s):? patient is a 62 yo male new patient to practice, here to establish care, had cardiac scan and it was very high so is taking asa. takes propranolol for migraines. * ROS:?General/Constitutional:?Patient denies?chills , fatigue , fever , headache.?ENT:?Patient denies?decreased sense of smell , any loss of taste , sore throat.?Cardiovascular:?Patient denies?chest pain with exertion chest pain at rest.?Musculoskeletal:?Patient complaining of?shoulder pain from arthritis.?Peripheral Vascular:?Patient denies?red and blue toes.? * Medical History:? * Surgical History:? * Hospitalization/Major Diagno stic Procedure:? * Family History:?Father: dece ased 90 yrs.?Mother: alive 90 yrs.?1 brother(s) . 2 son(s) , 1 daughter(s) . .? Mother Dementia Father CHF. * Social History:?Tobacco Use:?Tobacco Use/Smoking?Patient is a?nonsmoker,?Additional Findings: Tobacco Non-User?Current non-smoker, currently using no form of tobacco.?Drugs/Alcohol:?Alcohol Screen?Did you have a drink containing alcohol in the past year??No,?Points?0,?Interpretation?Negative.?Miscellaneous:?Caffeine: yes, frequency:, 1-2 cups per day. Children: yes. Exercise: yes, Bike QD 2-3- hours. Housing: owning. Marital status: single, . Pets: cats: dogs:1 dog. Travel outside of the [place]: yes, [place]. * Medications:?TakingAspir-Low 81 MG Tablet Delayed Release 1 tablet Orally Once a dayAtorvastatin Calcium 40 MG Tablet 1 tablet Orally Once a dayPropranolol HCl 60 MG Tablet 1 tablet Orally once a dayMedication List reviewed and reconciled with the patientTaking Aspir-Low 81 MG Tablet Delayed Release 1 tablet Orally Once a dayTaking Atorvastatin Calcium 40 MG Tablet 1 tablet Orally Once a dayTaking Propranolol HCl 60 MG Tablet 1 tablet Orally once a dayMedication List reviewed and reconciled with the patient * Allergies:?Penicillin: hives yes[Allergies Verified] Objective: * Vitals:?Ht:70, Wt:187, BMI:2 6.83, BP:114/60. * Examination: ???General Examination: ?GENERAL APPEARANCE:? alert, well hydrated, in no distress .?HEAD:? normocephalic.?SKIN:? good turgor.?HEART:? regular rate and rhythm no murmurs, rubs, gallops.?LUNGS:? no wheezes, rales, rhonchi good air movement clear to auscultation bilaterally.? Assessment: * Assessment: 1.?Abnormal screening cardia c CT - R93.1 (Primary)?2.?Pain in right shoulder - M25.511?3.?Other chronic pain - G89.29?4.?History of migraine - Z86.69? Plan: * Treatment: 2.?Pain in right shoulder? Notes: considering shoulder replacement.?? 3.?History of migraine? Start Propranolol HCl ER Capsule Extended Release 24 Hour, 60 MG, 1 capsule, Orally, Once a day, 90 days, 90 Capsule, Refills 4.?? Notes: will continue current regiment.?? 4.?Others? Notes: Total time spent on the date of the encounter is 45 minutes including both face to face time spent and time spent reviewing documentation, pertinent lab data, studies and counseling the patient.?? * Procedure Codes:? * Follow Up:?6 Months (Reason: complete) * * Sign off status: Completed true * Provider:?Rey Jung MD Date:?0 12/05/2023 Generated for Bhavna nazario/Elsa/eTmerrysmitting on:?06/18/2024 06:54 PM EST History and Physical Notes * HPI (History of Present Illness) Category Sub-Category Detail Notes Category Not es Symptom(s) patient is a 62 yo male new patient to practice, here to establish care, had cardiac scan and it was very high so is taking asa. takes propranolol for migraines Examination Category Sub-Category Detail Notes Category Not es General Examination GENERAL APPEARANCE: alert, w ell hydrated, in no distress HEAD: normocephalic HEART: regular rate and rhy thm no murmurs, rubs, gallops LUNGS: no wheezes, rales, r honchi good air movement clear to auscultation bilaterally SKIN: good turgor Consultation Request Notes Referral Date Referring Provider Referred Provider Not es 12/05/2023 Rey Jung Nirav abnormal sc reening cardiac CT
== END 2024-06-18 15:04 | disposition home or self-care (01) ==
PROVIDERS: PCP Internal Medicine; Visit Provider Internal Medicine Cardiovascular Disease
DX: I25.10 Atherosclerotic heart disease of native coronary artery without angina pectoris (principal)
CPT/HCPCS: 99213

== ENCOUNTER 2024-11-29 07:45 | Outpatient (REF) | payer OTHER, SELFPAY ==
--- OUTSIDE RECORDS SUMMARY | 2024-06-01 03:30 | XMS_ITS ---
Author Organization Rey Jung MD Address [address] [place], [place] [id number] Care Team Providers Care Formula Room Worker Name Role Phone Rey Jung Primary Care Provider Results Component Value Reference Range Notes Complete Blood Count Auto Di ff Reviewed date:06/01/2024 05:21:59 PM Interpretation: Performing Lab:[facility], [address] [place] [phone] Notes/Report: White Blood Count 6.8 4.8-10.8 X10*3/uL Red Blood Count 5.47 4.60-5.80 X10*6/uL Hemoglobin 15.6 14.0-18.0 g/dl Hematocrit 46.7 42.0-52.0 % Mean Corpuscular Volume 85.4 80.0-98.0 fL Mean Corpuscular Hemoglobin 28.5 27.0-33.0 pg Mean Corpuscular HGB Conc 33.4 31.0-36.0 g/dl Red Cell Distribution Width 13.1 11.0-16.0 % Platelet Count 199 160-400 X10*3/uL Mean Platelet Volume 10.9 9.4-12.4 fL Neutrophils Percent Auto 55.0 45-73 % Imm Gran Pct Auto 0.4 0.0-0.4 % Lymphocytes Percent Auto 29.4 20-40 % Monocytes Percent Auto 12.1 2-11 % Eosinophils Percent Auto 2.7 0-4 % Basophils Percent Auto 0.4 0-2 % NRBC Pct Auto 0.0 0.0-0.2 /100WBC Neutrophils Absolute Auto 3.7 2.0-8.3 x10*3/u L Imm Gran Abs Auto 0.03 0.00-0.03 X10*3/uL Lymphocytes Absolute Auto 2.0 1.2-4.9 X10*3/u L Monocytes Absolute Auto 0.8 0.1-1.2 X10*3/uL Eosinophils Absolute Auto 0.2 0.0-0.4 X10*3/u L Basophils Absolute Auto 0.0 0.0-0.2 X10*3/uL NRBC Abs Auto 0.000 0.0-0.012 X10*3/uL Comprehensive [place]. Panel Fa st Reviewed date:06/01/2024 05:15:45 PM Interpretation: Performing Lab:[address] [phone] Notes/Report: Sodium 142 135-145 mmol/L Potassium 4.5 3.3-5.1 mmol/L Chloride 107 96-108 mmol/L Carbon Dioxide 32 22-29 mmol/L Anion Gap 8 12-20 Blood Urea Nitrogen 16 9-16 mg/dL Creatinine 1.27 0.5-1.4 mg/dL Estimated Glomerular Filt Rate 57 Chronic Kidney Disease: Estimated GFR < 60 mL/min/1.73m2 Severe Kidney Disease: Estimated GFR < 15 mL/min/1.73m2 Glucose Fasting 95 60-99 mg/dL Calcium 9.3 8.4-10.2 mg/dL Bilirubin Total 0.8 0.0-1.0 mg/dL Aspartate Amino Transferase 50 5-37 U/L Alanine Aminotransferase 52 0-40 U/L Total Protein 7.2 6.5-8.0 g/dL Albumin Level 4.4 3.5-5.0 g/dL Alkaline Phosphatase 93 39-117 U/L Lipid Panel Reviewed date:06/01/2024 05:15:52 PM Interpretation: Performing Lab:[address] [phone] Notes/Report: Triglycerides 86 <150 mg/dL Desirable Triglyceride: less than 150 mg/dL Borderline High Triglyceride 150-199 mg/dL High Triglyceride: 200-499 mg/dL Very High Triglyceride: greater than or equal to 5OO mg/dL Cholesterol 131 <200 mg/dL Desirable Cholesterol: less than 200 mg/dL Borderline High Cholesterol: 200-239 mg/dL High Cholesterol: greater than 239 mg/dL LDL Cholesterol Calculated 69 <100 mg/dL Desirable LDL: less than 100 mg/dL Near Optimal/Above Optimal LDL: 110-129 mg/dL Borderline High LDL: 130-159 mg/dL High LDL: 160-189 mg/dL Very High LDL: greater than or equal to 190 mg/dL HDL Cholesterol 45 >40 mg/dL Desirable HDL: greater than 40 mg/dL Note: This HDL assay may give artificially low results in patients with liver disease. PSA,Total (Free>4and<10) Reviewed date:06/01/2024 05:15:03 PM Interpretation: Performing Lab:[address] [phone] Notes/Report: PSA,Total (Free>4and<10) 1.10 0.00-4.00 ng/mL A Free PSA was not performed: The percentage of Free PSA can be used to enhance the differentiation of prostate cancer from benign prostatic disease in subjects whose PSA levels are between 4.0 and 10.0 ng/mL. For subjects whose PSA levels are below 4.0 or above 10.0 ng/mL, the risk of prostate cancer is determined on the basis of the PSA alone. Therefore the % Free PSA is recommended only for those subjects whose PSA levels are between 4.0 and 10.0 ng/mL. PSA methodology: Matias Alinity i Chemiluminescent Microparticle Immunoassay (CMIA) UA ClnCatch+Micro w/rflx Cul t Reviewed date:06/01/2024 05:15:18 PM Interpretation: Performing Lab:[facility], [address] [place] [phone] Notes/Report: Urine, Clean Catch Color Urine Yellow Appearance Urine Clear PH 7.5 5.0-9.0 Glucose Urine UA Negative Negative mg/dL Urine Blood Negative Negative Specific [place] - Urine 1.025 1.005-1.025 Urine Protein Negative Neg-Trace mg/dL Urine Ketones Negative Negative mg/dL Nitrite Urine Negative Negative Leukocyte Esterase Urine Trace Negative RBC Urine 0-2 0-2 /HPF WBC Urine 0-5 0-5 /HPF Squamous Epithelial Cell Urine 0-2 0-2 /HPF Bacteria Urine None Seen None Seen Hyaline Casts Urine 0-2 0-2 /LPF REASON FOR VISIT yearly fasting labs Encounters Encounter Location Date Provider Diagnosis Rey Jung MD [address] [place], [place] [id number] 06/01/2024 Rey Jung Blood tests for routine general physical examination Z00.00 Assessments Encounter Date Diagnosis (ICD Code) Assessment Notes Treatment Notes Treatment Clinical Notes Section Notes 06/01/2024 Blood tests for routine general physical examination (ICD-10 - Z00.00) Plan Of Treatment Next Appt Details Provider Name:Rey sena, 12/06/2024 10:15:00 AM, Hospital [facility], [address], [place], [place], [phone], Provider Name:Rey sena, 06/06/2025 07:45:00 AM, [address] [place] [address], Suite [facility], [place], [place], [id number], Provider Name:Rey sena, 06/13/2025 11:00:00 AM, [address] [place] [address], Suite [facility], [place], [place], [phone], Progress Notes * Renee EVANGELISTAOB: (63 yo M)Acc No.[id number]:06/01/2024 Progress Note Patient: Mina WEST Provider: Ping Jung MD :1960 A ge:63 Y S ex:Male Date:06/01/2024 Address:[address] [place] [address], [id number] Subjective: * Chief Complaints: * 1 . Yearly fasting labs. * Medical History: Objective: * Vitals: Assessment: * Assessment: 1. B lood tests for routine general physical examination - Z00.00 (Primary) Plan: * Treatment: * Procedure Codes: 3 6415 VENIPUNCT, ROUTINE* * * The named appointment provid er may or may not be the originator of this progress note, and it is not deemed complete until electronically signed by the appointment provider. Sign off status: Pending * Provider: Ping Jung MD Date: 0 06/01/2024 Generated for Bhavna nazario/Elsa/Emmaitting on: 0 11/29/2024 12:02 PM EDT
[2024-11-29 11:47] LABS: Alanine Aminotransferase 43 U/L (0-40); Albumin Level 4.4 g/dL (3.5-5.0); Alkaline Phosphatase 78 U/L (39-117); Aspartate Amino Transferase 45 U/L (5-37); Cholesterol 100 mg/dL (<200); HDL Cholesterol 41 mg/dL (>40); Total Protein 6.8 g/dL (6.5-8.0); Triglycerides 57 mg/dL (<150)
--- OUTSIDE RECORDS SUMMARY | 2024-11-29 12:02 | XMS_ITS | Clinical Summary ---
Author Organization [facility] Address [address] [place] [address] Care Team Providers Care Veterans Services Specialist Name Role Phone Dinh Gray MD Primary Care Provider [phone] Allergies Active Allergy Reactions Criticality Noted Date Comments Penicillin V Potassium Rash Low 02/14/2013 Medications lovastatin (MEVACOR) 10 mg tablet Take by mouth daily. Active propranoloL (INDERAL) 60 mg tablet Take by mouth. 05/28/2013 Active Active Problems No known active problems Encounters Date Type Department Care Team Description 11/22/2024 Orders Only [facility] Department of Orthopedic Surgery [address] [place] [address] Abram Ramos MD Acute pain of right shoulder (Primary Dx) from Last 3 Months Social History Tobacco Use Types Packs/Day Years Used Date Smoking Tobacco: Never Smokeless Tobacco: Never Alcohol Use Standard Drinks/Week Comments Yes 0 (1 standard drink = 0.6 oz pur e alcohol) Sex and Gender Information Value Date Recorded Sex Assigned at Male 08/17/2024 10:13 AM EDT Legal Sex Male 11:22 AM EST Gender Identity Male 08/17/2024 10:13 AM EDT Sexual Orientation Straight 08/17/2024 10 :13 AM EDT Last Filed Vital Signs Vital Sign Reading [...] DTaP,Tdap,and Td Vaccines (1 - Tdap) 1978 Hepatitis C Screening 1978 Pneumococcal Vaccine, 50+ Years (1 of 1 - PCV) 2010 Zoster Vaccines (1 of 2) 2010 COVID-19 Vaccine (4 - 2023-2 5 season) 2024 03/31/2023, 06/24/2020, 05/27/2020 Influenza Vaccine (#1) 2025 04/30/2023 HPV Vaccines Aged Out No longer eligi [...] patient's age to complete this topic Insurance [facility] ER PPO Care Teams Veterans Services Specialist Relationship Specialty Start Date End Date Dinh Gray MD [address] [place] [address] PCP - General Internal Medicine 05/27/20
--- OUTSIDE RECORDS SUMMARY | 2024-11-29 12:02 | XMS_ITS | Clinical Summary ---
Author Organization [facility] Address [address] [place] [id number] Care Team Providers Care Shoe Lay Out Planner Name Role Phone Unavailable Primary Care Provider [...] season) 2024 06/24/2020, 05/27/2020 Influenza Vaccine (#1) 2025 RSV Adult > 60+ Yrs or (1 [...] Effective Dates Phone Address [facility] [email or web address] [address] [facility] [address] [place] [address] O Shower Enclosure Installer,Mina Personal/Family Self 1960 [address] [place] [address]
--- OUTSIDE RECORDS SUMMARY | 2024-11-29 12:02 | XMS_ITS ---
Author Name [facility] Organization Unknown History of Medication Use Medication Directions Dispensed Refills Start Date End Date Stat us propranoloL (INDERAL) 60 mg tablet Take by mouth. 05/28/2013 active lovastatin (MEVACOR) 10 mg tablet Take by mouth daily. active Allergies Allergen Reaction Severity Comment Documented Date Source Statu s PENICILLIN V POTASSIUM RASH 02/14/2013 [facility] active Problems Problem Status Onset Date Problem Type Date of Resoluti on Source Acute pain of right shoulder active EncounterDiagnosisAct [facility] Encounters Encounter Type Encounter Reason Primary Diagnosis Location Date Ambulatory Pain in right shoulder Pain in right shoulder [facility] 08/22/2024 Ambulatory Pain in right shoulder Pain in right shoulder [facility] 08/22/2024 Care Team Organization Name Specialty Phone Email Start Date End Da te [facility] Primary Care 08/23/19
--- OUTSIDE RECORDS SUMMARY | 2024-11-29 12:02 | XMS_ITS | Clinical Summary ---
Author Organization [facility] Address [address] [place] [address] Care Team Providers Care Wild Life Manager Name Role Phone Unavailable Primary Care Provider Unavailabl e Social History Tobacco Use Types Packs/Day Years Used Date Smoking Tobacco: Never Assessed Sex and Gender Information Value Date Recorded Sex Assigned at Not on file Legal Sex Male 9:58 PM EST Gender Identity Not on file Sexual Orientation Not on file Plan of Treatment Health Maintenance Due Date Last Done Comments DTaP,Tdap,and Td Vaccines (1 - Tdap) 12/15/1979 Pneumococcal Vaccine: 50+ Years (1 of 1 - PCV) 2010 Zoster Vaccines (1 of 2) 2010 Cholesterol Screening (Lipid Panel) 04/24/2022 Colorectal Cancer Screening: Colonoscopy 04/24/2022 Depression Screening 04/24/2022 HIV Screening 04/24/2022 Hepatitis C Screening 04/24/2022 Social Influencers of Health Screening 04/24/2022 COVID-19 Vaccine (3 - 2023-2 5 season) 2024 06/24/2020, 05/27/2020 Influenza Vaccine (#1) 2025 RSV Immunization Adult Patients (1 - 1-dose 75+ series) 12/15/2035 HIB [...] patient's age to complete this topic Meningococcal B Vaccine Aged Out No l onger eligible based on patient's age to complete this topic Pneumococcal Vaccine: Pediatrics (0 to 5 Years) and At-Risk Patients (6 to 49 Years) Aged Out No longer eligible b ased on patient's age to complete this topic RSV Immunization Patients Under 20 months Aged Out No longer eligible b ased on patient's age to complete this topic Varicella Vaccines Aged Out No longer eligible based on patient's age to complete this topic
== END 2024-11-29 07:46 | disposition home or self-care (01) ==
LOC: HO.LNP 07:45
PROVIDERS: Visit Provider Internal Medicine
DX: R79.89 Other specified abnormal findings of blood chemistry (principal)
CPT/HCPCS: 80061; 80076

== ENCOUNTER 2025-04-11 08:20 | Outpatient (AMB) | payer OTHER, SELFPAY ==
[2025-04-11 08:28] VITALS: BP 114/66; PULSE 59; BMI 26.8
--- NOTE | 2025-04-11 08:28 | MHC.OFFVIS ---
Vital Signs 04/11/25 08:28 Height 5 ft 10 in Weight 186 lb 15.232 oz BMI 26.8 BP 114/66 Blood Pressure Location Lt brachial Position Sitting Pulse 59 Pulse Source Monitor Intake Visit Reasons: 1 yr f/up Intake Note: 1 year follow up Cartoonist Special Effects Required: No Accompanied by: Self / Same As Patient Allergies Penicillins Allergy (Verified 04/11/25 08:30) Hives atorvastatin Adverse Reaction (Mild, Verified 04/11/25 09:14) Muscle Pain Medication List - Last Reconciled 04/11/25 by Terrell Patrick MD aspirin (Adult Low Dose Aspirin) 81 mg PO DAILY atorvastatin 40 mg PO DAILY ezetimibe 10 mg PO DAILY propranolol 60 mg PO ONCE HPI Comments Details: Amandeep comes for follow-up to discuss statin therapy. He says he has been remaining very active and pushing limits on biking without having any exertional symptoms of chest pain or shortness of breath. However he said few months ago he developed bilateral shoulder ache without any obvious etiology. He then give himself a break from atorvastatin for 4 weeks and the symptoms improved gradually. He then tried to put himself back on atorvastatin and he had recurrent shoulder pain. He is therefore stopped taking atorvastatin at this point time. He comes to discuss further treatment options. Patient denies any shortness of breath, palpitation, lightheadedness, syncope. [facility] Surgical History History of arthroscopy of right shoulder Status post labral repair of shoulder Family History Father HTN (hypertension) DM2 (diabetes mellitus, type 2) Colon cancer Social History Alcohol intake: current Alcohol intake frequency: holidays/special occasions only Patient Tobacco Use Status: Never used Tobacco Review of Systems Const Denies daytime sleepiness, Denies difficulty sleeping, Denies snoring, Denies stops breathing during sleep and Denies weakness Card Denies chest pain, Denies rapid heart rate, Denies irregular heart rhythm, Denies claudication, Denies leg edema, Denies lightheadedness, Denies palpitations, Denies dyspnea, Denies dyspnea on exertion, Denies orthopnea, Denies paroxysmal nocturnal dyspnea and Denies slow heart rate Resp Denies cough, Denies dyspnea, Denies dyspnea on exertion and Denies snoring GI Reports no additional complaints, Denies hematochezia, Denies change in stool character and Denies dyspepsia Musc Denies abnormal gait, Denies muscle weakness and Denies numbness Neuro Denies abnormal gait, Denies numbness and Denies weakness Endo Denies palpitations Physical Exam Vital Signs: Last Vital Signs Pulse 59 04/11/25 08:28 BP 114/66 04/11/25 08:28 BMI result Body Mass Index 26.8 Const General: cooperative, comfortable, no acute distress, well developed, alert, awake, Physically active and well groomed Nutritional Appearance: average body habitus and well nourished Orientation/consciousness: patient oriented x3 Limitations: no limitations HEENT Head: Yes normocephalic and Yes atraumatic Neck Neck: Yes trachea midline, Yes supple and Yes no JVD Resp Effort & Inspection: normal respiratory effort Auscultation: clear to auscultation bilaterally Cardio Jugular venous distension: no JVD Palpation: normal PMI Rate: regular rate Rhythm: regular rhythm Heart sounds: S1 normal heart sound present, S2 normal heart sound present, no click, no gallops, no murmurs and no rubs GI Auscultation: normal bowel sounds Skin General skin exam: no rashes or lesions noted Neuro General: patient oriented x3 and no focal motor deficits Extrem General: Yes no clubbing, cyanosis or edema Psych Appearance: grossly normal Office Procedures EKG Details: EKGs shows sinus bradycardia otherwise normal EKGs [id number], Complete Assessment & Plan Assessment & Plan (1) CAD (coronary artery disease): Code(s): I25.10 - Atherosclerotic heart disease of [place] coronary artery without angina pectoris Category: Medical Plan: Coronary artery disease with predominantly LAD territory calcium buildup with no current symptoms at high workload. Still suggest nonobstructive coronary artery disease. We discussed about pathophysiology of coronary artery disease. Needs lipid modification. His LDL was well optimized on dual therapy with high-intensity statin and ezetimibe therapy. However he has not tolerating high-intensity statin therapy with the atorvastatin at this point time. See below. Continue maintain activity level as tolerated. Advised to call me with any new symptoms. (2) Statin intolerance: Code(s): Z78.9 - Other specified health status Plan: Statin intolerance with symptoms of myalgias on atorvastatin therapy. Did not have similar symptoms and lovastatin therapy. We discussed the differences between the 2 statin therapy with high potency versus low potency respectively. To guide treatment he requires proper lowering of LDL and this was discussed with him. At this point time will stop his atorvastatin therapy due to intolerance. I have advised him to start coenzyme Q10 100 mg daily for couple of weeks and then change his statin to rosuvastatin 20 mg to achieve similar lipid lowering effect. If he is able to tolerate in his lipids are well modified then will continue with the therapy. This was discussed with him. Follow-up lipid panel in 3 months time. Thank you for allowing me to partake in his care Orders: Orders Lipid Panel 3 Months I25.10 - Atherosclerotic heart disease of [place] coronary artery without angina pectoris Medications: New rosuvastatin 20 mg PO DAILY 30 tabs 5RF coenzyme Q10 100 mg PO DAILY 30 caps 5RF Coding Level of Care Code Est Pt Level 4 (22512) Complex EM visit Add On G2211 Diagnoses CAD (coronary artery disease) I25.10 Statin intolerance Z78.9 CPT Codes EKG - CPT: 32505-[id number], Complete ([id number])
--- OUTSIDE RECORDS SUMMARY | 2025-04-11 08:53 | XMS_ITS | Data Portability ---
Author Organization [facility], [facility] Address [address] [place] [address] Care Team Providers Care Car Pick Up Driver Name Role Phone WENDY FISHER Primary Care Provider Assessment No assessment recorded. Plan of Treatment Reminders Order Date Submit Date Provider Last Modified By Organization Details Last Modified Time Details Appointments None recorded. Lab None recorded. Referral None recorded. Procedures None recorded. Surgeries None recorded. Imaging XR, shoulder, 2 or more view - 4v lt shoulder room [address], [address], [place], [address], 5 15:19:13 XR, cervical spine, 1 view - lat cspine room 2 [address]24 [address], [address], [place], [address], 5 15:19:13 Medication Orders None recorded. Patient TargetsNo targets recorded. Patient InstructionsNo instructions recorded. Reason for Referral None Reported. Results Created Date Observation Date Name Description Value Unit Range Abnormal Flag Note LastModifiedBy Organization Detail LastModifiedTime 12/14/1912/13/2024 XR, shoul maranda, 2 or more view [email or web address]:/ [email or web address] ?Encry pted=s hAaTro YD8dLq bEUv6g %2BXZw aYqtaq 0bqfl% 2Fg9IQ a4ajBk vP9nXo QUaueC m3YtLR FvZlgJ JJ8mAn HZtai3 0j5569 AC0Klb nyCUaC uKiQtr MwF INTERFACE [address] [address] [facility] [address], [place], [address], 12/13/2024 14:24:59 12/14/19 25 12/13/2024 XR, ana maranda, 2 or more view [email or web address] ?Encry pted=s hAaTro YD8dLq bEUv6g %2BXZw aYqtaq 0bqfl% 2Fg9IQ a4ajBk vP9nXo QUaueC m3YtLR FvZlgJ JJ8mAn HZtai3 6i4425 AC0Klb nyCUaC uKiQtr MwF INTERFACE [facility] [address] [facility] [address], [place], [address], 12/13/2024 14:25:01 12/14/19 25 12/13/2024 XR, cervi fransico spine , 1 view [email or web address]:/ [email or web address] ?Encry pted=s hAaTro YD8dLq bEUv6g %2BXZw aYqtaq 0bqfl% 2Fg9IQ a4ajBk vP9nXo QUaueC m3YtLR FvZlgJ JJ8mAn HZtai3 9p5603 AC0Klb nyCUae jKiQtr MwF INTERFACE [facility] [address] [facility] [address], [place], [address], 12/13/2024 14:26:05 12/14/19 25 12/13/2024 XR, cervi fransico spine , 1 view [email or web address]:/ [email or web address] ?Encry pted=s hAaTro YD8dLq bEUv6g %2BXZw aYqtaq 0bqfl% 2Fg9IQ a4ajBk vP9nXo QUaueC m3YtLR FvZlgJ JJ8mAn HZtai3 2v7357 AC0Klb nyCUae jKiQtr MwF INTERFACE [facility] [address] [facility] [address], [place], [address], 12/13/2024 14:26:06 Result Notes Documentation Provider Name and Address Organization Details Recorded Time Xr, Shoulder, 2 Or More View : [email or web address] Encrypted=dsOjPptNZ0tVpmX Uv6g%1HTOcvYavdv2oate%2Fg 3FTo7wlLofX6xGnUXfvsVj0Co ZAJfFokHMC9rBbZHhcb32x740 0GD3EzlhuTAqCgZbNitAaU Not Available [facility] 12/13/2024 14:25: 00 Xr, Shoulder, 2 Or More View : [email or web address] Encrypted=mdMzZttYJ0cAsqT Uv6g%5LTKsjYxgfj5qoty%2Fg 4VWj5rtXacB6qGgFYnkdBv4Ak KAOzAhlVKG5dHhTQiek78t435 2FW7KonkwFKsGkXfDjkLbC Not Available [facility] 12/13/2024 14:25: 02 Xr, Cervical Spine, 1 View : [email or web address] Encrypted=owTrHwfJE5vUamC Uv6g%2DBZinBvvek9nhta%2Fg 0ENf4ynIpsM5jVoKWuggSq4El OEIkYyhHRH5nNtQIovs42q929 8NF4LczhtADthyGzEqhFyR Not Available [facility] 12/13/2024 14:26: 05 Xr, Cervical Spine, 1 View : [email or web address] Encrypted=asXyFxfXB3oYukP Uv6g%9LKMckQrspx8axlk%2Fg 3UFs5igEupJ2gDwPOthjPs8Cy IEGaBfaIKL3wTzNAjvi68e825 2GG1XkmgrELxxzGxZwsYkX Not Available [facility] 12/13/2024 14:26: 06 Problems Name Problem SNOMED Code Status Onset Date Resolution Date Notes Provider Name and Address Organization Details Recorded Time Adhesive capsulitis of left shoulder 5364116520127 07 Active 2024 Neil elizabeth PA-C [address], [place], [address], [facility] 14:44:09 Problem Notes None recorded. Procedures Surgical History Date Name Laterality Status Provider Name and Address Organization Details Recorded Time 5 Sports Shoulder completed Neil Dolan PA-C [address], [place], [address], [facility] 12/13/2024 14:44:00 3 Shoulder Surgery completed JOSE FREITAS [facility] 12/13/2024 14:17:10 Imaging Results None recorded. Procedure Notes None recorded. Medical Equipment None Reported. Allergies Allergen ID Allergen Name Allergen Category Reaction Reaction Severity Criticality Documentation Date Start Date Code Code System Note Provider Name and Address Organization Details Recorded Time 280927 penicilli n V potassium medicatio n Not available Not available Not available 12/13/202406764 5 RxNorm JOSE FREITAS [facility] 14:16:59 Medications Name Sig Start Date Stop Date Status Note LastModified by Organization Details LastModified Time atorvastatin 40 mg tablet 024 active Not Available Not Available Not Avai lable propranolol ER 60 mg capsule,24 hr,extended release 010 active Not Available Not Available Not Avai lable Zetia 10 mg tablet 025 active Not Available Not Available Not Avai lable Vitals Date Recorded Body height Body mass index (BMI) Body weight Provider Name and Address Organization Details Last Updated DateTime 12/13/2024 177.8 cm 26.1 kg/m2 88701.81 g JOSE FREITAS [facility] 12/13/2024 14:17:25 Social History None recorded. Functional Status None recorded. Mental Status None recorded. Family History Nothing Reported. Medical History Condition Response Coronary Artery Disease N Anxiety/Depression N Emphysema N COPD N Pacemaker N Vascular Disease N Heart Trouble N Gastrointestinal Disease N Autoimmune disease N Inflammatory Joint disease N Orthotics N Arthritis N Blood Clot N Acid Reflux (GERD) N Cancer N Stroke N Circulation Problems N Rheumatoid Arthritis N Arrhythmia N Headaches N Fibromyalgia N Allergies/Hayfever N Breathing or lung disorders N Nerve Disorders N Thyroid Problems N Kidney/Bladder Problems N Anemia N Heart Attack (CO) N Cholesterol Y Diabetes N Bleeding Disorder N Seizures/Epilepsy N AIDS/HIV N Congestive Heart Failure (CHF) N Asthma N Peripheral Vascular Disease N Sleep Apnea N Hepatitis N Heart Disease N Pulmonary Embolism N Hypertension Y Osteoporosis N Past Encounters Encounter ID Performer Location Encounter Start Date Encounter Closed Date Diagnosis/Indication Diagnosis SNOMED-CT Code Diagnosis ICD10 Code Diagnosis IMO Codes Diagnosis Note [id number] JUSTIN [place] [address] [place] [address] 12/13/2024 14:12:37 12/21/2024 11:00:56 Pain of left shoulder joint [id number] 5603339 M25.512 968580 Adhesive c apsulitis of left shoulder 4893997851 94713 M75.02 [id number] Health Concerns Section Related Observation LastModified by Organization Detai ls LastModified Time None Recorded Concern Status LastModified by Organization Details LastModified Time None Recorded Advance Directives Directive None Recorded Payers Insurance Date Sequence Insurance Name Policy Number Policy Levy Covered Member ID Levy Member ID Guarantor Name 12/13/[address] [place] [address] [id number] Minapippa Mendezman [id number] Mina Evangelista 01/24/[address] [place] [address] [id number] [facility] [id number] Mina Evangelista Notes Date Note Type Note Provider Name and Address Organization Details Recorded Time 12/13/2024 text/html I am seeing the patient today under the supervision of Dr. Clement who was available, but did not see the patient.Patient is seen today for evaluation of a new problem of pain and discomfort and noticeable decreased ROM of the, left shoulder. Symptoms have been ongoing for approximately. 2-3 months in duration without any injuries, twists, turns or falls. Patient denies any history of shoulder pain prior to this. Concerned by this, they are referred to our office at this time for orthopedic evaluation.PFMSH and ROS has been reviewed, updated, and signed by me and is located in the patient's chart.On physical examination, the patient is well appearing, in no apparent distress, alert and oriented x3. Gait is symmetric.Right shoulder exam: ROM full, 5/5 strength including rotator cuff and periscapular musculature. Good muscle bulk and strength without atrophy. No evidence of instability of the shoulder. Negative impingement signs. Negative AC joint tenderness.Left shoulder exam: elevates to 165 degrees, externally rotates 70 degrees, internally rotates L5. The patient has bursal crepitus. Good strength when firing the cuff at lower levels with pain and weakness with horizontal elevation, mild impingemnt arc, no AC joint tenderness. CROM full without radicular symptomsPeripheral vascular, lymphatic examination, skin, neurological coordination, reflexes, sensation are within normal limits.X-RAY REPORT: Radiographs ordered, obtained and reviewed at [facility] today four views of the left shoulder demonstrates Type II acromion, hypertrophic ACJ arthritis, glenohumeral joint is well preserved, no calcium apprectiatedIMPRESSIO N: Adhesive capsulitis, left shoulder.PLAN: Discussed nature of symptoms, recommend referral to physical therapy, talked about importance of occasional stretching program. We talked about role of therapy once a week. The patient was counseled regarding short-term, long-term goals. Recommended and performed left shoulder intra-articular Cortisone injection, a total of 10cc Lidocaine and 80mgs Kenalog injected 2/3 joint and 1/3 bursa under ultrasound guidance. Post injection precautions reviewed. Recommendations for follow-up evaluation in our office as symptoms require going forward after a course of physical therapy. Neil Dolan PA-C [address] [facility] [address], [place], [address], [facility] 12/13/2024 14:44:30
== END 2025-04-11 08:58 | disposition home or self-care (01) ==
LOC: HO.HCS 08:20
PROVIDERS: PCP Internal Medicine; Visit Provider Internal Medicine Cardiovascular Disease
DX: I25.10 Atherosclerotic heart disease of native coronary artery without angina pectoris (principal); Z78.9 Other specified health status
CPT/HCPCS: 93010; 99214; G2211

== ENCOUNTER → 2025-04-11 08:20 | Outpatient (BNVA) | payer OTHER, SELFPAY | PROVIDERS: PCP Internal Medicine; Visit Provider Internal Medicine Cardiovascular Disease | DX: I25.10 Atherosclerotic heart disease of native coronary artery without angina pectoris (principal) | CPT/HCPCS: 93005 ==